=== PATIENT | male | born 1945 | race Caucasian/White ===

== ENCOUNTER → 2017-09-19 | Outpatient (CLI) | payer OTHER ==
[~2017-09-19] MED LIST: ACIPHEX; ACIPHEX 20 MG T20 MG PO; ALPHAGAN P10 ML OP; AMARYL1 MG PO; AMITRIPTYLINE H10 M1 PO; AMLODIPINE BESY10 MG PO; CIPRO500 M1 PO; COSOPT EYE DROPS5 ML OPHTHALMIC; DICLOFENAC POTA50 MG PO; FLAGYL500 MG PO; FLOMAX0.4 MG PO; LISINOPRIL10 MG PO; LUMIGAN2.5 M1 OPHTHALMIC; NEURONTIN 300300 M1 PO; OMEPRAZOLE40 MG PO; OXECTA5 MG; TAMSULOSIN HCL0.4 M1; TIMOLOL MA0.25 %/5 M OPHTHALMIC; TRAMADOL 50 MG50 MG PO; ZOFRAN4 MG PO
== END ==
LOC: M.WC 09:00
DX: T87.89 Other complications of amputation stump (principal); Y83.5 Amputation of limb(s) as the cause of abnormal reaction of the patient, or of later complication, without mention of misadventure at the time of the procedure; I70.242 Atherosclerosis of native arteries of left leg with ulceration of calf; L97.221 Non-pressure chronic ulcer of left calf limited to breakdown of skin; I10 Essential (primary) hypertension; K21.9 Gastro-esophageal reflux disease without esophagitis; H40.9 Unspecified glaucoma; F33.1 Major depressive disorder, recurrent, moderate; F17.221 Nicotine dependence, chewing tobacco, in remission; Z68.20 Body mass index [BMI] 20.0-20.9, adult

== ENCOUNTER 2018-08-18 13:20 | Emergency (ER) | payer OTHER ==
[~2018-08-18] VITALS: Ht 177.8 cm; Wt 99.8 kg
== END 2018-08-18 16:23 ==
LOC: M.ERS 13:20
DX: I46.9 Cardiac arrest, cause unspecified (principal)